=== PATIENT | female | born 1945 | race Caucasian/White ===

== ENCOUNTER 2022-02-18 08:28 | Inpatient (IN) | payer OTHER ==
[~2022-02-18] VITALS: Ht 154.9 cm; Wt 469.5 kg
[2022-02-18] VITALS (30 sets, daily range): BP systolic 73–164; BP diastolic 29–99
[2022-02-18] MEDS ORDERED: ONDANSETRON HCL/PF 4 MG/2 ML VIAL IVP ONE (08:30)
[2022-02-18] MEDS ORDERED: IV NS 0.9% 1,000 ML BAG IV ONE (08:30)
[2022-02-18] MEDS ORDERED: PANTOPRAZOLE 40 MG VIAL IV ONE (08:30)
--- NOTE | 2022-02-18 08:35 | NUR ---
ALDAIR [id number] "From Home Vomiting cofee ground emesis started last night". On room air, breathing evenly and unlabored. Alert and oriented x 4, nigerian speaking. IV on the RAC G18. Kept comfortable, will continue to monitor accordingly.
[2022-02-18] MEDS ORDERED: PANTOPRAZOLE 40 MG VIAL ONE (08:37)
[2022-02-18] MEDS ORDERED: ONDANSETRON HCL/PF 4 MG/2 ML VIAL ONE ×2 (08:37→10:13)
--- NOTE | 2022-02-18 08:45 | NUR ---
blood drawned and sent to lab.
--- NOTE | 2022-02-18 08:48 | NUR ---
covid swab collected and sent to lab.
--- NOTE | 2022-02-18 08:50 | NUR ---
MOVE SHEET SUBMITTED.
[2022-02-18 08:54] LABS: BASOPHILS # (AUTO) 0.1 K/uL (0.0-0.2); BASOPHILS % (AUTO) 0.4 % (0.0-2.0); EOSINOPHILS % (AUTO) 0.1 % (0.0-6.0); LYMPHOCYTES # (AUTO) 1.1 K/uL (0.8-4.8); LYMPHOCYTES % (AUTO) 6.3 % (20.0-44.0); MEAN CORPUSCULAR HGB CONC 27 g/dl (31.0-36.0); MEAN CORPUSCULAR VOLUME 89 fL (82-100); MONOCYTES # (AUTO) 0.5 K/uL (0.1-1.30); NEUTROPHILS # (AUTO) 16.3 K/uL (1.8-8.9); NEUTROPHILS % (AUTO) 90.2 % (43.0-81.0); PLATELET COUNT (AUTO) 452 K/uL (150-450); WHITE BLOOD COUNT (AUTO) 18.1 K/uL (4.3-11.0)
[2022-02-18 09:02] LABS: CALCIUM, SERUM 7.8 mg/dL (8.5-10.1); CARBON DIOXIDE 17 mmol/L (21-32); CHLORIDE 109 mmol/L (98-107); CREATININE 0.9 mg/dL (0.6-1.3); GLUCOSE 122 mg/dL (74-106); POTASSIUM 4.6 mmol/L (3.5-5.1); RED BLOOD CELL COUNT(AUTO) 1.17 MIL/uL (4.0-5.2); SODIUM SERUM 139 mmol/L (136-145); UREA NITROGEN, BLOOD 30 mg/dL (7-18)
[2022-02-18 09:03] LABS: HEMATOCRIT 10 % (33-45); HEMOGLOBIN 2.8 g/dL (11.5-14.8); SERUM AMMONIA 68 umol/L (11-32)
[2022-02-18 09:08] LABS: ALANINE AMINOTRANSFERASE 42 U/L (12-78); ALBUMIN 1.6 g/dL (3.4-5.0); ALKALINE PHOSPHATASE 501 U/L (46-116); ASPARTATE AMINOTRANSFERASE 59 U/L (15-37); BILIRUBIN,DIRECT 0.3 mg/dL (0.0-0.2); BILIRUBIN,TOTAL 0.5 mg/dL (0.2-1.0); TOTAL PROTEIN, SERUM 4.7 g/dL (6.4-8.2)
--- NOTE | 2022-02-18 09:40 | NUR ---
GI CONSULT: DR. REDD SPEAKING WITH DR. MIRANDA.
--- NOTE | 2022-02-18 09:45 | NUR ---
CALLED [facility] [phone] DR. VILLAFUERTE WILL CALL US BACK.
--- NOTE | 2022-02-18 09:57 | NUR ---
Blood transfusion started o positive 370 ml volume.
[2022-02-18] MEDS ORDERED: OCTREOTIDE 50 MCG/ML AMPUL IV ONE (10:00)
[2022-02-18] MEDS ORDERED: OCTREOTIDE 100 MCG/ML VIAL ONE (10:07)
[2022-02-18] MEDS ORDERED: LATA2.5D15 EACHEYE (10:19)
[2022-02-18] MEDS ORDERED: PANT40TA49 PO (10:19)
[2022-02-18] MEDS ORDERED: HYDR-3972 PO (10:19)
[2022-02-18] MEDS ORDERED: PRAV10TA40 PO (10:19)
[2022-02-18] MEDS ORDERED: VENL37.510 PO (10:19)
[2022-02-18] MEDS ORDERED: CLOP75TA15 PO (10:19)
[2022-02-18] MEDS ORDERED: IV NS 0.9% 1,000 ML IV PRN (10:30)
[2022-02-18] MEDS ORDERED: ONDANSETRON HCL/PF 4 MG/2 ML VIAL IVP PRN ×2 (10:30→11:30)
[2022-02-18] MEDS ORDERED: ONDANSETRON HCL/PF 4 MG/2 ML VIAL IV ONE (10:30)
[2022-02-18] MEDS ORDERED: PANTOPRAZOLE 80 MG in IV NS 0.9% 500 ML IV PRN (10:30)
[2022-02-18] MEDS ORDERED: CEFTRIAXONE 2 G in IV D5W 100 ML IV SCH (10:30)
[2022-02-18] MEDS ORDERED: ACETAMINOPHEN 325 MG TABLET PO PRN ×2 (10:30→11:30)
[2022-02-18] MEDS ORDERED: MAGNESIUM HYDROXIDE 30 ML UDC PO PRN ×2 (10:30→22:00)
[2022-02-18] MEDS ORDERED: ZOLPIDEM TARTRATE 5 MG TABLET PO PRN ×2 (10:30→22:00)
[2022-02-18] MEDS ORDERED: OCTREOTIDE 500 MCG in IV NS 0.9% 99 ML IV PRN ×2 (10:30→11:30)
[2022-02-18] MEDS ORDERED: MAG HYDROX/AL HYDROX/SIMETH 30 ML UDC PO PRN ×2 (10:30→11:30)
[2022-02-18] MEDS ORDERED: Z GUARD REMEDY 4 OZ OINT TP PRN ×2 (10:30→11:30)
--- NOTE | 2022-02-18 11:05 | NUR ---
going to icu 257. admitting made aware.
--- NOTE | 2022-02-18 11:14 | NUR ---
report given to Rimma ESTEVEZ to continue care.
[2022-02-18 11:24] LABS: LIPASE 88 U/L (73-393)
--- NOTE | 2022-02-18 11:26 | NUR ---
wheeled patient via gurney accompanied by RN and emt, blood infusing while on transfer, patient in no distress, denies any pain or discomfort. RN assigned at bedside to assume care.
--- NOTE | 2022-02-18 11:35 | NUR ---
SCHOOL BUS OPERATOR NOTE ADMIT 76 YEAR OLD FEMALE TO ICU AT ROOM 257 ALERT ORIENTED X4 UGANDAN SPEAKING ON 2L OXYGEN VIA NASAL CANNULA,O2:98% IV SITE IS ON LEFT AC #18 AND RIGHT UPPER ARM #20 INTACT PATENT.ADMISSION DIAGNOSIS IS GI BLEEDING WITH HEMOGLOBIN 2.8,CONTIENT BOWEL/BLADDER,BED BOUND,SAFETY MEASURE IMPLEMENT BED IN LOW POSITION AND LOCKED,HEAD OF THE BED ELEVATED,CALL LIGHT WITHIN REACH,CONTINUE TO MONITOR.
--- NOTE | 2022-02-18 12:00 | NUR ---
RN NOTES STARTS BLOOD TRANSFUSION CONTINUE TO MONITOR.
[2022-02-18 12:13] LABS: BILIRUBIN,URINE NEGATIVE (NEGATIVE); COLOR,URINE YELLOW (YELLOW); LEUKOCYTE ESTERASE ,URINE NEGATIVE (NEGATIVE); NITRITE, URINE NEGATIVE (NEGATIVE); PH,URINE 5.5 (5.0-8.0); PROTEIN,URINE NEGATIVE (NEGATIVE); UGLUCOSE NEGATIVE (NEGATIVE); UROBILINOGEN,URINE 0.2 EU/dL (0.2)
[2022-02-18] MEDS: IV NS 0.9% 1,000 ML IV PRN (12:17)
[2022-02-18] MEDS: CEFTRIAXONE 2 G in IV D5W 100 ML IV SCH (12:51)
[2022-02-18] MEDS: PANTOPRAZOLE 80 MG in IV NS 0.9% 500 ML IV PRN ×2 (13:08→23:45)
[2022-02-18 13:15] LABS: LYMPHOCYTES % (MANUAL) 5 % (16-48); MONOCYTES % (MANUAL) 2 % (0-11.0); NEUTROPHILS % (MANUAL) 93 (42-76)
--- NOTE | 2022-02-18 14:30 | NUR ---
RN NOTE FIRST BLOOD TRANSFUSION FORM ICU DONE AT 1430,CONTINUE TO MONITOR.
[2022-02-18 14:53] LABS: OCCULT BLOOD STOOL POSITIVE (NEGATIVE)
--- NOTE | 2022-02-18 15:20 | NUR ---
RN NOTE START SECOND BAG OF PRBC AT 1520 NO REACTION NOTED FROM FIRST BLOOD TRANSFUSION CONTINUE TO MONITOR.
[2022-02-18] MEDS: OCTREOTIDE 1,250 MCG in IV NS 0.9% 247.5 ML IV PRN (16:20)
--- NOTE | 2022-02-18 17:20 | NUR ---
RN NOTE BLOOD TRANSFUSION DONE NO REACTION NO ACUTE DISTRESS NOTED CONTINUE TO MONITOR.
--- NOTE | 2022-02-18 18:46 | NUR ---
RN NOTE PATIENT REMAINS ALERT ORIENTED X4 VERNALLY RESPONSIVE ON 2L OXYGEN VIA NASAL CANNULA O2:99% IV SITE IS ON RIGHT UPPER ARM MID LINE AND RIGHT AC INTACT PATENT ON PROTONIX 50CC/HR AND CETROTIDE 5ML/HR NS 75CC/HR.2 BAG OF PRBC GIVEN,NOT ACUTE DISTRESS NOTED WILL ENDORSE NEXT COMING SHIFT FOR CONTINUATION OF CARE.
--- NOTE | 2022-02-18 19:15 | NUR ---
RN NOTE REPORT RECEIVED FROM BARBER ESTEVEZ, PATIENT RESTING IN BED, ON SEMI SHETTY'S, AO X 4, CENTRAL AFRICAN SPEAKING, AT BEDSIDE. IN NO ACUTE DISTRESS, SATURATION AT 95% ON 2L VIA NC, SR ON THE MONITOR, HR IS 91. IV LINE AT RAC18G, AND ALBERTO MIDLINE BOTH PATENT AND FLUSHING WELL, NO S/S OF INFECTION OR BLEEDING, NS INFUSING AT 75 ML/HR, PROTONIX AT 8 MG/HR, OCTREOTIDE AT 25 MCG/HR. SAFETY MEASURES IN PLACE. BED IS LOCKED AND AT LOWEST POSITION, BED ALARM ON, CALL LIGHT WITHIN REACH. WILL CONT TO MONITOR AND ASSESS FOR ANY CHANGES.
[2022-02-18 20:01] LABS: BASOPHILS % (AUTO) 0.2 % (0.0-2.0); HEMATOCRIT 27 % (33-45); HEMOGLOBIN 8.7 g/dL (11.5-14.8); LYMPHOCYTES % (AUTO) 7.6 % (20.0-44.0); MEAN CORPUSCULAR HGB CONC 32 g/dl (31.0-36.0); MEAN CORPUSCULAR VOLUME 87 fL (82-100); MONOCYTES # (AUTO) 0.5 K/uL (0.1-1.30); MONOCYTES % (AUTO) 3.8 % (2.0-12.0); NEUTROPHILS # (AUTO) 11.2 K/uL (1.8-8.9); NEUTROPHILS % (AUTO) 88.4 % (43.0-81.0); PLATELET COUNT (AUTO) 261 K/uL (150-450); RED BLOOD CELL COUNT(AUTO) 3.14 MIL/uL (4.0-5.2); WHITE BLOOD COUNT (AUTO) 12.6 K/uL (4.3-11.0)
[2022-02-19] VITALS (26 sets, daily range): BP systolic 65–127; BP diastolic 25–75
[2022-02-19] MEDS: IV NS 0.9% 1,000 ML IV PRN ×2 (03:34→13:56)
[2022-02-19 05:29] LABS: BASOPHILS % (AUTO) 0.3 % (0.0-2.0); EOSINOPHILS % (AUTO) 0.3 % (0.0-6.0); HEMATOCRIT 26 % (33-45); HEMOGLOBIN 8.2 g/dL (11.5-14.8); LYMPHOCYTES # (AUTO) 0.9 K/uL (0.8-4.8); LYMPHOCYTES % (AUTO) 7.4 % (20.0-44.0); MEAN CORPUSCULAR HGB CONC 32 g/dl (31.0-36.0); MEAN CORPUSCULAR VOLUME 87 fL (82-100); MONOCYTES # (AUTO) 0.4 K/uL (0.1-1.30); MONOCYTES % (AUTO) 3.1 % (2.0-12.0); NEUTROPHILS # (AUTO) 11.1 K/uL (1.8-8.9); NEUTROPHILS % (AUTO) 88.9 % (43.0-81.0); PLATELET COUNT (AUTO) 224 K/uL (150-450); RED BLOOD CELL COUNT(AUTO) 2.94 MIL/uL (4.0-5.2); WHITE BLOOD COUNT (AUTO) 12.4 K/uL (4.3-11.0)
[2022-02-19 05:42] LABS: CARBON DIOXIDE 22 mmol/L (21-32); CHLORIDE 113 mmol/L (98-107); CREATININE 0.7 mg/dL (0.6-1.3); GLUCOSE 125 mg/dL (74-106); POTASSIUM 3.8 mmol/L (3.5-5.1); SODIUM SERUM 140 mmol/L (136-145); UREA NITROGEN, BLOOD 31 mg/dL (7-18)
--- NOTE | 2022-02-19 07:30 | NUR ---
RN MORNING NOTE PT RECEIVED IN BED SLEEPING. PT IS ON RA TOLERATING WELL WITH NO SIGNS OF LABORED BREATHING OR DISTRESS O2 SAT 97%. PT IS A/OX4 EMIRATI SPEAKING ONLY. PT IS NPO AT THIS TIME. IV ACCESS R UA MIDLINE AND R AC 18G INFUSING WITH PROTONIX@ 8MG/HR, OCTREOTIDE @ 25MCG/HR, AND NS@74ML/HR. BED IS LOCKED IN LOWEST POSITION X2 BED RAILS UP, CALL ALVARADO IS WITHIN REACH AND ALL HOSPITAL SAFETY PRECAUTIONS ARE IN PLACE. WILL CONTINUE TO MONITOR.
[2022-02-19] MEDS: OCTREOTIDE 1,250 MCG in IV NS 0.9% 247.5 ML IV PRN (08:43)
[2022-02-19] MEDS: PANTOPRAZOLE 80 MG in IV NS 0.9% 500 ML IV PRN ×2 (09:35→19:30)
[2022-02-19 11:02] LABS: HEMOGLOBIN 8.3 g/dL (11.5-14.8)
[2022-02-19] MEDS: CEFTRIAXONE 2 G in IV D5W 100 ML IV SCH (12:33)
--- NOTE | 2022-02-19 15:30 | NUR ---
RN NOTE: EGD CONSENT EGD CONSENT OBTAINED AND SIGNED BY PT'S , MILDRED LANDERS. SIGNED CONSENT FORMS ARE IN PT CHART.
--- NOTE | 2022-02-19 19:33 | NUR ---
RN CLOSING NOTE PT IS IN BED. PT IS ON RA TOLERATING WELL WITH NO SIGNS OF LABORED BREATHING OR DISTRESS O2 SAT 97%. PT IS A/OX4 UZBEK SPEAKING ONLY. PT IS NPO AT THIS TIME. IV ACCESS R UA MIDLINE AND R AC 18G INFUSING WITH PROTONIX@ 8MG/HR, OCTREOTIDE @ 25MCG/HR, AND NS@75ML/HR. PT IS CURRENTLY WAITING TO BE TRANSFERRED TO [facility]. BED IS LOCKED IN LOWEST POSITION X2 BED RAILS UP, CALL ALVARADO IS WITHIN REACH AND ALL HOSPITAL SAFETY PRECAUTIONS ARE IN PLACE. WILL ENDORSE TO CPR AMBULANCE DRIVER NURSE FOR ROBERT.
--- NOTE | 2022-02-19 19:59 | NUR ---
RN NOTES SPOKE WITH [facility] CHILD CARE ATTENDANT SCHOOL, SHE INFOMRED THAT PATIENT WILL BE TRANSFERED AFTER EGD PROCEDURE IS COMPLETED PER [facility]. WILL CONTINUE CARE OF PATIENT. CHARGE NURSE AND PATIENT'S AWARE OF PLAN FOR PATIENT.
[2022-02-20] VITALS (24 sets, daily range): BP systolic 90–152; BP diastolic 36–78
[2022-02-20] MEDS: IV NS 0.9% 1,000 ML IV PRN ×2 (02:40→16:35)
[2022-02-20 05:23] LABS: BASOPHILS # (AUTO) 0.1 K/uL (0.0-0.2); BASOPHILS % (AUTO) 0.4 % (0.0-2.0); EOSINOPHILS % (AUTO) 1.3 % (0.0-6.0); HEMATOCRIT 26 % (33-45); HEMOGLOBIN 8.3 g/dL (11.5-14.8); LYMPHOCYTES # (AUTO) 0.7 K/uL (0.8-4.8); LYMPHOCYTES % (AUTO) 5.1 % (20.0-44.0); MEAN CORPUSCULAR HGB CONC 32 g/dl (31.0-36.0); MEAN CORPUSCULAR VOLUME 88 fL (82-100); MONOCYTES # (AUTO) 0.4 K/uL (0.1-1.30); MONOCYTES % (AUTO) 2.8 % (2.0-12.0); NEUTROPHILS # (AUTO) 12.5 K/uL (1.8-8.9); NEUTROPHILS % (AUTO) 90.4 % (43.0-81.0); PLATELET COUNT (AUTO) 253 K/uL (150-450); RED BLOOD CELL COUNT(AUTO) 2.99 MIL/uL (4.0-5.2); WHITE BLOOD COUNT (AUTO) 13.9 K/uL (4.3-11.0)
[2022-02-20 05:34] LABS: CALCIUM, SERUM 6.9 mg/dL (8.5-10.1); CARBON DIOXIDE 19 mmol/L (21-32); CHLORIDE 113 mmol/L (98-107); CREATININE 0.7 mg/dL (0.6-1.3); GLUCOSE 97 mg/dL (74-106); POTASSIUM 3.3 mmol/L (3.5-5.1); SODIUM SERUM 141 mmol/L (136-145); UREA NITROGEN, BLOOD 21 mg/dL (7-18)
[2022-02-20] MEDS: PANTOPRAZOLE 80 MG in IV NS 0.9% 500 ML IV PRN (05:48)
--- NOTE | 2022-02-20 07:30 | NUR ---
RN OPENING NOTE PT OBSERVED SLEEPING IS IN BED. PT IS ON RA TOLERATING WELL WITH NO SIGNS OF LABORED BREATHING OR DISTRESS O2 SAT 96%. PT IS A/OX4 BELIZEAN SPEAKING ONLY. PT IS NPO AT THIS TIME AND SCHEDULED FOR EGD TODAY. IV ACCESS R UA MIDLINE AND R AC 18G INFUSING WITH PROTONIX@ 8MG/HR, OCTREOTIDE @ 25MCG/HR, AND NS@75ML/HR. PT IS CURRENTLY WAITING TO BE TRANSFERRED TO [facility]. BED IS LOCKED IN LOWEST POSITION X2 BED RAILS UP, CALL ALVARADO IS WITHIN REACH AND ALL HOSPITAL SAFETY PRECAUTIONS ARE IN PLACE. WILL CONTINUE TO MONITOR THIS SHIFT.
--- NOTE | 2022-02-20 07:40 | NUR ---
RN NOTES ENDORSED CARE OF PATIENT TO AM NURSE, NO SIGNIFICANT FINDINGS UPON ALL NURSING ASSESSMENTS. ALL DUE MEDS GIVEN AND PLAN OF CARE CARRIED OUT. ENDORSED CARE OF PATIENT TO AM NURSE FOR CONTINUITY OF CARE.
[2022-02-20] MEDS ORDERED: FENTANYL PF 100MCG/2ML AMPUL ONE (09:26)
[2022-02-20] MEDS: POTASSIUM CL. PREMIX PERIPHER. 50 ML IV SCH ×5 (09:31→15:50)
--- NOTE | 2022-02-20 09:50 | NUR ---
RN NOTE: EGD PT HAS LEFT THE FLOOR FOR EGD. PT STABLE AT THIS TIME.
[2022-02-20] MEDS: OCTREOTIDE 1,250 MCG in IV NS 0.9% 247.5 ML IV PRN (11:22)
[2022-02-20] MEDS ORDERED: ANESTHESIA TRAY IN PYXIS 1 EA TRAY MC ONE (11:23)
[2022-02-20] MEDS: SUCRALFATE 1 G/10 ML UDC GT SCH ×3 (12:47→21:28)
[2022-02-20] MEDS: CEFTRIAXONE 2 G in IV D5W 100 ML IV SCH (13:07)
[2022-02-20] MEDS: PANTOPRAZOLE 40 MG VIAL IV SCH (17:53)
--- NOTE | 2022-02-20 18:49 | NUR ---
RN CLOSING NOTE PT IS LAYING IS IN BED. PT IS ON RA TOLERATING WELL WITH NO SIGNS OF LABORED BREATHING OR DISTRESS O2 SAT 94%. PT IS A/OX4 GREEK SPEAKING ONLY. PT IS ON SOFT DIET AT THIS TIME AFTER EGD TODAY AND TOLERATED FOOD WELL WITHOUT COMPLICATION. IV ACCESS R UA MIDLINE AND R AC 18G INFUSING WITH NS@75ML/HR. PT IS CURRENTLY WAITING TO BE TRANSFERRED TO [facility]. PER [facility]PERATIONS SPECIALIST, THEY WILL CALL BACK AFTER EGD HAS BEEN COMPLETED FOR PLACEMENT, BUT HAVE NOT HEARD BACK. BED IS LOCKED IN LOWEST POSITION X2 BED RAILS UP, CALL ALVARADO IS WITHIN REACH AND ALL HOSPITAL SAFETY PRECAUTIONS ARE IN PLACE. WILL ENDORSE TO TOASTER OPERATOR NURSE FOR ROBERT.
--- NOTE | 2022-02-20 19:10 | NUR ---
RN NOTES RECEIVED REPORT FROM MORNING RN. PATIENT IN BED A/O X4 FRISIAN SPEAKING AT BEDSIDE NO SOB NO PAIN NO DISTRESS NOTED AT THIS TIME. ON ROOM AIR SATING 99%. WITH IV ACCESS AT RAC #18, ALBERTO MIDLINE PATENT FLUSHES WELL. ALL SAFETY MEASURES IN PLACE AT ALL TIMES. HOB ELEVATED. CALL LIGHT WITHIN REACH WILL CLOSELY MONITOR THE PATIENT.
[2022-02-21] VITALS (12 sets, daily range): BP systolic 89–138; BP diastolic 44–89
[2022-02-21 05:18] LABS: BASOPHILS % (AUTO) 0.3 % (0.0-2.0); EOSINOPHILS % (AUTO) 1.3 % (0.0-6.0); HEMATOCRIT 27 % (33-45); HEMOGLOBIN 8.6 g/dL (11.5-14.8); LYMPHOCYTES # (AUTO) 0.7 K/uL (0.8-4.8); MEAN CORPUSCULAR HGB CONC 32 g/dl (31.0-36.0); MEAN CORPUSCULAR VOLUME 88 fL (82-100); MONOCYTES # (AUTO) 0.4 K/uL (0.1-1.30); MONOCYTES % (AUTO) 2.9 % (2.0-12.0); NEUTROPHILS # (AUTO) 12.5 K/uL (1.8-8.9); NEUTROPHILS % (AUTO) 90.5 % (43.0-81.0); PLATELET COUNT (AUTO) 323 K/uL (150-450); RED BLOOD CELL COUNT(AUTO) 3.08 MIL/uL (4.0-5.2); WHITE BLOOD COUNT (AUTO) 13.8 K/uL (4.3-11.0)
[2022-02-21 05:42] LABS: CALCIUM, SERUM 7.1 mg/dL (8.5-10.1); CARBON DIOXIDE 22 mmol/L (21-32); CHLORIDE 116 mmol/L (98-107); CREATININE 0.8 mg/dL (0.6-1.3); GLUCOSE 121 mg/dL (74-106); POTASSIUM 3.6 mmol/L (3.5-5.1); SODIUM SERUM 144 mmol/L (136-145); UREA NITROGEN, BLOOD 15 mg/dL (7-18)
[2022-02-21] MEDS: IV NS 0.9% 1,000 ML IV PRN (05:59)
--- NOTE | 2022-02-21 06:53 | NUR ---
RN CLOSING NOTE PT IS LAYING IS IN BED. PT IS ON NASAL CANULA AT 2LPM SATING 98% NO SOB NO DISTRESS NOTED AT THIS TIME. PT IS A/OX4 YORUBA SPEAKING ONLY. IV ACCESS R UA MIDLINE AND R AC 18G INFUSING WITH NS@75ML/HR. PT IS CURRENTLY WAITING TO BE TRANSFERRED TO [facility]. BED IS LOCKED IN LOWEST POSITION X2 BED RAILS UP, CALL ALVARADO IS WITHIN REACH AND ALL HOSPITAL SAFETY PRECAUTIONS ARE IN PLACE. WILL ENDORSE TO MORNING SHIFT NURSE FOR ROBERT.
--- NOTE | 2022-02-21 07:20 | NUR ---
TIN FLOPPER OPENING NOTE REPORT RECEIVED. PATIENT ALERT AND AWAKE A&OX4 TELUGU SPEAKING. ALL VSS TEMP 97.7, HR 85, SPO2 97% ON ROOM AIR. RR 20, BP 127/76. IV RUR MIDLINE PATENT AND INTACT RUNNING NS 0.9%@ 75MLS/HR. DIET SOFT. VOIDING WITH BED ARSHAD. ALL SAFETY FALL PRECAUTIONS IN PLACE BED LOCK ON, BED ALARM ON, BED IN LOWEST POSITION, SIDE RAILS UP, CALL LIGHT WITHIN REACH. WILL CONTINUE TO MONITOR.
[2022-02-21] MEDS: PANTOPRAZOLE 40 MG VIAL IV SCH (07:56)
[2022-02-21] MEDS: SUCRALFATE 1 G/10 ML UDC GT SCH ×2 (07:56→11:30)
--- NOTE | 2022-02-21 08:18 | NUR ---
JOURNALISM TEACHER NOTE PATIENT WAS CLEANED PARTIAL LINEN WAS CHANGED. PATIENT WAS READJUSTED AND TURNED. PATIENT RESTING COMFORTABLY ON THE BED. ALL SAFETY FALL PRECAUTIONS IN PLACE. PATIENT'S AT BEDSIDE. WILL CONTINUE TO MONITOR.
--- NOTE | 2022-02-21 08:49 | NUR ---
02/21/22 @ [address] Sanchez. patient stable for transfer to [place] at this time, EGD done. Possibly D/C home as well
[2022-02-21] MEDS ORDERED: SUCR1TAB31 PO (08:58)
[2022-02-21] MEDS: CEFTRIAXONE 2 G in IV D5W 100 ML IV SCH (11:30)
--- NOTE | 2022-02-21 13:30 | NUR ---
ICU DC NOTE PATIENT STABLE FOR DC HOME. PATIENT LEFT WITH . I TOOK THE PATIENT DOWN TO THE FRONT OF THE HOSPITAL IN A WHEEL CHAIR. I ASSISTED THE PATIENT TO TRANSFER INTO THE CAR AND PUT ON HER SEAT BELT. PATIENT WAS GIVEN HER BELONGINGS. PATIENT WAS GIVEN INSTRUCTIONS AND PATIENT EDUCATION.
== END 2022-02-21 13:43 | disposition home or self-care (01) | DRG 377 ==
LOC: ER 08:30 → ICU 11:47
PROVIDERS: ADMIT Nurse Practitioner Acute Care; ATTEND Internal Medicine
PROC: 30233N1 Transfusion of Nonautologous Red Blood Cells into Peripheral Vein, Percutaneous Approach (ICD-10-PCS; principal; 2022-02-18)
PROC: 05H933Z Insertion of Infusion Device into Right Brachial Vein, Percutaneous Approach (ICD-10-PCS; 2022-02-18)
PROC: 0DB68ZX Excision of Stomach, Via Natural or Artificial Opening Endoscopic, Diagnostic (ICD-10-PCS; 2022-02-20)
DX: K29.71 Gastritis, unspecified, with bleeding (principal); N17.0 Acute kidney failure with tubular necrosis; D62 Acute posthemorrhagic anemia; E87.2 Acidosis; M48.56XA Collapsed vertebra, not elsewhere classified, lumbar region, initial encounter for fracture; R18.8 Other ascites; E78.5 Hyperlipidemia, unspecified; I10 Essential (primary) hypertension; I48.91 Unspecified atrial fibrillation; Z79.02 Long term (current) use of antithrombotics/antiplatelets; Z79.899 Other long term (current) drug therapy; D72.829 Elevated white blood cell count, unspecified; E86.9 Volume depletion, unspecified; E83.51 Hypocalcemia; K57.90 Diverticulosis of intestine, part unspecified, without perforation or abscess without bleeding; R74.01 Elevation of levels of liver transaminase levels; K21.01 Gastro-esophageal reflux disease with esophagitis, with bleeding
CPT/HCPCS: 36415; 71045-TC; 80048-TC; 80076-TC; 82140-TC; 82272-TC; 83690-TC; 84484-TC; 85025-TC; 85027-TC; 85730-TC; 86850-TC; 87081-TC; 94799-TC; C9113; C9803; G0378; J0696; J2354; J2405; J2704; J3010; J3480; J3490; J7030; J7040; J7050; J7060; P9016